=== PATIENT | male | born 1955 | race Caucasian/White ===

== ENCOUNTER 2017-10-03 12:11 | Emergency (ER) | payer BC ==
[2017-10-03 13:17] VITALS: BP 147/77
--- NOTE | 2017-10-03 13:21 | UC ---
HPI Febrile Illness - HPI Summary HPI Summary: 62 year male with fever. c/o coughing, chills, headache, fever, pressure behind eyes since "some diarrhea" night. Pt states he did get a flu shot. feels like the flu per pt. body aches started ~40 hours ago [ End ] - History of Current Complaint Chief Complaint: UCRespiratory Time Seen by Provider: 10/03/17 12:48 Hx Obtained From: Patient Timing: Constant Pain Intensity: 7 Associated Signs and Symptoms: Chills, Cough, Diarrhea, Myalgia - Allergy/Home Medications Allergies/Adverse Reactions: Allergies Allergy/AdvReac Type Severity Reaction Status Date / Time amoxicillin Allergy Intermediate Rash Verified 10/03/17 13:18 Home Medications: Home Medications Acetaminophen [Tylenol Extra Strength] 1,000 mg PO ONCE 10/03/17 [History Confirmed 10/03/17] Echinacea [Echinacea Herb] 380 mg PO DAILY 10/03/17 [History Confirmed 10/03/17] Guaifenesin/Pseudoephedrne HCl [Mucinex D ER 600-60 mg Tablet] 1 each PO ONCE PRN 10/03/17 [History Confirmed 10/03/17] Turmeric/Turmeric Root Extract [Turmeric 500 mg Capsule] 1 each PO DAILY [History Confirmed 10/03/17] PMH/Surg Hx/FS Hx/Imm Hx Previously Healthy: Yes - Surgical History Surgical History: None - Family History Known Family History: Negative: Respiratory Disease - Social History Occupation: Employed Full-time Alcohol Use: Occasionally Substance Use Type: None Smoking Status (MU): Never Smoked Tobacco Review of Systems Constitutional: Fever, Chills, Fatigue ENT: Sore Throat, Ear Ache, Nasal Discharge Respiratory: Cough Is Patient Immunocompromised?: No All Other Systems Reviewed And Are Negative: Yes Physical Exam Triage Information Reviewed: Yes Appearance: Well-Appearing, No Pain Distress, Well-Nourished Vital Signs: Initial Vital Signs Temp 102.4 F 10/03/17 13:04 Pulse 92 10/03/17 13:04 Resp 18 10/03/17 13:04 BP 147/77 10/03/17 13:04 Pulse Ox 97 10/03/17 13:04 Vital Signs Reviewed: Yes Eye Exam: Normal ENT Exam: Normal Dental Exam: Normal Neck exam: Normal Neck: Positive: 1 Respiratory Exam: Normal Cardiovascular Exam: Normal Musculoskeletal Exam: Normal Neurological Exam: Normal Psychological Exam: Normal Skin Exam: Normal Course/Dx - Course Course Of Treatment: neg flu but could be false neg. has clinical flu. discussed tamiflu and SE and that it may not be that helpful but he and want him to start at this time. he is asking for PAUL as his is 7 years old - Febrile Illness Differential Diagnoses: Pneumonia, Viremia - Diagnoses Clinic Provider Diagnoses: influenza Discharge - Sign-Out/Discharge Documenting (check all that apply): Discharge - Discharge Plan Condition: Good Disposition: HOME Prescriptions: Albuterol Sulfate [Proventil Hfa] 108 mcg IN Q6HR PRN #1 aer PRN Reason: Cough Oseltamivir CAP* [Tamiflu CAP*] 75 mg PO BID #10 cap Patient Education Materials: Influenza (ED) Referrals: No Primary Care Phys,NOPCP [Primary Care Provider] - 4 Days - Billing Disposition and Condition Condition: GOOD Disposition: HOME
== END 2017-10-03 14:06 | disposition home or self-care (01) ==
LOC: UCCORT 12:11
DX: J11.1 Influenza due to unidentified influenza virus with other respiratory manifestations (principal); Z88.0 Allergy status to penicillin
CPT/HCPCS: 87502; 99202; G0463